=== PATIENT | female | born 1955 | race Caucasian/White ===

== ENCOUNTER → 2016-06-05 | Outpatient (CLI) | payer OTHER ==
[~2016-06-05] MED LIST: ASPI81TA28 PO; ATOR10TA88 PO; CALC12502 PO; CHOL1000 PO; IBUP-1050 PO; LISI10TA PO; MULT1TAB22 PO; POTA1TAB PO
[2016-06-05 13:13] LABS: BLOOD UREA NITROGEN 18 mg/dl (7-18); CALCIUM 9.3 mg/dl (8.5-10.1); CARBON DIOXIDE 22 mmol/L (21-32); CHLORIDE 108 mmol/L (98-107); CREATININE 0.94 mg/dl (0.60-1.20); GLUCOSE 107 mg/dl (70-99); POTASSIUM 4.1 mmol/L (3.5-5.1); SODIUM 140 mmol/L (136-145)
[2016-06-05 13:24] LABS: CHOLESTEROL 160 mg/dl (0-200); CHOLESTEROL/HDL RATIO 3.6; HDL CHOLESTEROL 44 mg/dl; LDL CHOLESTEROL CALCULATED 87 mg/dl; THYROID STIMULATING HORMONE 0.006 uIu/ml (0.300-4.500); TRIGLYCERIDES 144 mg/dl (0-150); VERY LOW DENSITY LIPOPROT CALC 29 mg/dl
== END | disposition home or self-care (01) ==
LOC: C.LABPVFM 07:40
PROVIDERS: ATTEND Nurse Practitioner
DX: R53.83 Other fatigue (principal); E78.5 Hyperlipidemia, unspecified; I10 Essential (primary) hypertension

== ENCOUNTER → 2016-06-08 | Outpatient (CLI) | payer OTHER ==
[2016-06-10 08:19] LABS: MICROSOMAL AB <1 IU/ML (<9); THYROGLOBULIN 174.6 NG/ML (2.8-40.9)
== END | disposition home or self-care (01) ==
LOC: C.LABPVFM 07:44
PROVIDERS: ATTEND Nurse Practitioner
DX: E05.90 Thyrotoxicosis, unspecified without thyrotoxic crisis or storm (principal)

== ENCOUNTER → 2016-06-16 | Outpatient (CLI) | payer OTHER ==
[~2016-06-16] MED LIST changes: +BMX1 PO; +ETOD200C2 PO; +METH-848 PO; +NRN100 PO; +OMEP20CA9 PO
[2016-06-19 14:27] LABS: TSI 31 % baseline (<140)
== END | disposition home or self-care (01) ==
LOC: C.LABPVFM 07:45
PROVIDERS: ATTEND Nurse Practitioner
DX: E05.90 Thyrotoxicosis, unspecified without thyrotoxic crisis or storm (principal)

== ENCOUNTER → 2016-06-23 | Outpatient (CLI) | payer OTHER | END | disposition home or self-care (01) | LOC: C.PAPS 17:10 | PROVIDERS: ATTEND Obstetrics & Gynecology | DX: Z01.419 Encounter for gynecological examination (general) (routine) without abnormal findings (principal) ==

== ENCOUNTER → 2016-08-31 | Outpatient (CLI) | payer OTHER ==
[~2016-08-31] MED LIST changes: +ATOR10TA82 PO; -ATOR10TA88 PO
[2016-08-31 13:46] LABS: THYROID STIMULATING HORMONE < 0.005 uIu/ml (0.300-4.500)
== END | disposition home or self-care (01) ==
LOC: C.LAB1850 11:42
PROVIDERS: ATTEND Internal Medicine Endocrinology, Diabetes & Metabolism
DX: E05.90 Thyrotoxicosis, unspecified without thyrotoxic crisis or storm (principal); E55.9 Vitamin D deficiency, unspecified

== ENCOUNTER → 2016-09-22 | Outpatient (CLI) | payer OTHER | END | disposition home or self-care (01) | LOC: C.MAMM 08:15 | PROVIDERS: ATTEND Internal Medicine Endocrinology, Diabetes & Metabolism | DX: R53.83 Other fatigue (principal); E05.90 Thyrotoxicosis, unspecified without thyrotoxic crisis or storm; E04.1 Nontoxic single thyroid nodule ==

== ENCOUNTER → 2016-09-22 | Outpatient (CLI) | payer OTHER ==
--- NOTE | 2016-09-22 12:05 | DIAGNOSTIC IMAGING REPORT ---
ULTRASOUND OF THE THYROID GLAND CLINICAL HISTORY: Fatigue. Hyperthyroidism. COMPARISON STUDY: Nuclear thyroid uptake and scan dated 07/02/2016. TECHNIQUE: Real-time, grayscale, and color flow sonography of the thyroid gland is performed utilizing a high-frequency linear transducer. Images are reviewed in the transverse and longitudinal planes. FINDINGS: Right lobe: The right lobe of the thyroid gland is mildly enlarged and heterogeneous in echotexture, measuring 5.6 x 1.8 x 2.1 cm. There is a complex solid and cystic nodule in the lower pole measuring 1.8 x 1.0 x 1.1 cm. This contains foci of macroscopic colloid. A similar appearing nodule in the midpole measures 1.3 x 1.0 x 1.3 cm and a larger similar-appearing nodule in the mid to lower pole measures 2.3 x 1.4 x 1.3 cm.. A colloid cyst in the midpole measures 7 mm. Left lobe: The left lobe of the thyroid gland is enlarged and heterogeneous in echotexture, measuring 6.7 x 3.1 x 3.3 cm. A dominant complex nodule largely replaced the left lobe and measures 4.2 x 2.7 x 3.2 cm. This contains large shadowing calcifications and small foci of macroscopic colloid. Isthmus: The thyroid isthmus is thickened and heterogeneous, measuring 1.1 cm in AP diameter. IMPRESSION: 1. Enlarged and heterogeneous thyroid gland. 2. There are large bilateral thyroid nodules containing foci of macroscopic colloid. The largest nodule is present in the left lobe and measures 4.2 cm. Follow-up with fine-needle aspiration of the largest nodule in the left lobe is recommended for further assessment based on size criteria. 3. Follow-up of the remaining nodules is recommended with repeat ultrasound in 6 months time. Electronically signed by: Reid Camarena M.D. 09/22/2016 12:03 PM Dictated Date/Time: 09/22/2016 12:00 PM
== END | disposition home or self-care (01) ==
LOC: C.ULTR 10:22
PROVIDERS: ATTEND Internal Medicine Endocrinology, Diabetes & Metabolism
DX: E05.90 Thyrotoxicosis, unspecified without thyrotoxic crisis or storm (principal); R53.83 Other fatigue; E04.1 Nontoxic single thyroid nodule

== ENCOUNTER → 2016-09-22 | Outpatient (CLI) | payer OTHER ==
[2016-09-22 09:49] LABS: BASO % 0.2 %; BASO ABS # 0.01 K/uL (0-0.2); COMPLETE YES; EOS % 2.7 %; HEMATOCRIT 41.4 % (37-47); IG% 0.2 %; LYMPH % 36.9 %; LYMPH ABS # 2.17 K/uL (1.2-3.4); MEAN CELL VOLUME 87.3 fL (80-100); MEAN CORPUSCULAR HEMOGLOBIN 28.7 pg (25-34); MEAN CORPUSCULAR HGB CONC 32.9 g/dl (32-36); MEAN PLATELET VOLUME 11.4 fL (7.4-10.4); PLATELET COUNT 203 K/uL (130-400); RED BLOOD COUNT 4.74 M/uL (4.2-5.4); WHITE BLOOD COUNT 5.88 K/uL (4.8-10.8)
[2016-09-22 10:32] LABS: ALT/SGPT 33 U/L (12-78); AST/SGOT 15 U/L (15-37); BLOOD UREA NITROGEN 17 mg/dl (7-18); CALCIUM 9.9 mg/dl (8.5-10.1); CARBON DIOXIDE 27 mmol/L (21-32); CHLORIDE 108 mmol/L (98-107); CREATININE 0.93 mg/dl (0.60-1.20); GLUCOSE 89 mg/dl (70-99); SODIUM 142 mmol/L (136-145)
[2016-09-22 10:35] LABS: ALB/GLOB RATIO 1.1 (0.9-2); ALKALINE PHOSPHATASE 121 U/L (45-117)
== END | disposition home or self-care (01) ==
LOC: C.LAB1850 08:50
PROVIDERS: ATTEND Internal Medicine Endocrinology, Diabetes & Metabolism
DX: E78.5 Hyperlipidemia, unspecified (principal); E05.90 Thyrotoxicosis, unspecified without thyrotoxic crisis or storm; E04.1 Nontoxic single thyroid nodule

== ENCOUNTER → 2016-09-30 | Outpatient (CLI) | payer OTHER | END | disposition home or self-care (01) | LOC: C.LAB1850 11:40 | PROVIDERS: ATTEND Internal Medicine Endocrinology, Diabetes & Metabolism | DX: E05.90 Thyrotoxicosis, unspecified without thyrotoxic crisis or storm (principal) ==

== ENCOUNTER → 2016-10-19 | Outpatient (CLI) | payer OTHER | END | disposition home or self-care (01) | LOC: C.LABPVFM 11:23 | PROVIDERS: ATTEND Neuromusculoskeletal Medicine & OMM | DX: L02.415 Cutaneous abscess of right lower limb (principal) ==

== ENCOUNTER → 2016-11-09 | Outpatient (CLI) | payer OTHER ==
[~2016-11-09] MED LIST changes: -ATOR10TA82 PO; +ATOR10TA88 PO
--- NOTE | 2016-11-09 16:45 | DIAGNOSTIC IMAGING REPORT ---
ULTRASOUND RIGHT LOWER EXTREMITY VENOUS CLINICAL HISTORY: Right leg pain and swelling. COMPARISON STUDY: Right lower extremity venous ultrasound dated 10/16/2009. TECHNIQUE: Real-time, grayscale, and color Doppler sonography of the deep veins of the right lower extremity was performed from the inguinal crease to the calf. Compression and augmentation were utilized. FINDINGS: There is no sonographic evidence of deep venous thrombosis identified in the right lower extremity. The common femoral, superficial femoral, and popliteal veins are patent and normally compressible. There is nearly occlusive superficial venous thrombus identified within the right greater saphenous vein. The visualized calf veins are patent. IMPRESSION: 1. There is no sonographic evidence of deep venous thrombosis identified in the right lower extremity. 2. There is nearly occlusive superficial venous thrombus seen throughout the greater saphenous vein. Electronically signed by: Reid Camarena M.D. 11/09/2016 4:43 PM Dictated Date/Time: 11/09/2016 4:41 PM
== END | disposition home or self-care (01) ==
LOC: C.ULTR 16:13
PROVIDERS: ATTEND Family Medicine
DX: M79.605 Pain in left leg (principal); R60.0 Localized edema

== ENCOUNTER → 2016-11-19 | Outpatient (CLI) | payer OTHER ==
[~2016-11-19] MED LIST changes: -BMX1 PO; -ETOD200C2 PO; -METH-848 PO; -NRN100 PO; -OMEP20CA9 PO
== END | disposition home or self-care (01) ==
LOC: C.LABPVFM 07:30
PROVIDERS: ATTEND Internal Medicine Endocrinology, Diabetes & Metabolism
DX: E05.90 Thyrotoxicosis, unspecified without thyrotoxic crisis or storm (principal)

== ENCOUNTER → 2016-11-20 | Outpatient (CLI) | payer OTHER ==
[~2016-11-20] MED LIST changes: +BMX1 PO; +ETOD200C2 PO; +METH-848 PO; +NRN100 PO; +OMEP20CA9 PO
[2016-11-20 18:40] LABS: LYME DISEASE AB IGG NEG (NEG); LYME DISEASE AB IGM NEG (NEG)
== END | disposition home or self-care (01) ==
LOC: C.LABPVFM 12:02
PROVIDERS: ATTEND Nurse Practitioner
DX: R53.83 Other fatigue (principal); R60.0 Localized edema; L03.115 Cellulitis of right lower limb

== ENCOUNTER → 2016-11-24 | Outpatient (CLI) | payer OTHER ==
--- NOTE | 2016-11-24 15:58 | MAMMOGRAPHY REPORT ---
BILATERAL DIGITAL SCREENING MAMMOGRAM WITH CAD: 11/24/2016 CLINICAL HISTORY: Routine screening. Patient has no complaints. TECHNIQUE: Bilateral CC and MLO views were obtained. Current study was also evaluated with a Comput er Aided Detection (CAD) system. COMPARISON: Comparison is made to exams dated: 10/24/2015 mammogram, 10/22/2014 mammogram, 10/16/2013 ma mmogram, 10/13/2012 mammogram, 10/10/2010 mammogram, and 10/09/2009 mammogram - [facility] BREAST COMPOSITION: There are scattered areas of fibroglandular density in both breasts. FINDINGS: There are scattered benign rim calcifications in the breasts. No suspicious mass, architec tural distortion or cluster of suspicious microcalcifications is seen. IMPRESSION: ACR BI-RADS CATEGORY 1: NEGATIVE There is no mammographic evidence of malignancy. A 1 year screening mammogram is recommended. The pa tient will receive written notification of the results. Approximately 10% of breast cancers are not detected with mammography. A negative mammographic report should not delay biopsy if a clinically suggestive mass is present. Monika Wang M.D. ay/:11/24/2016 15:45:23 Interior Block Wirer: Gloria Crews, [facility] letter sent: Normal 1/2 BI-RADS Code: ACR BI-RADS Category 1: Negative
== END | disposition home or self-care (01) ==
LOC: C.MAMM 15:17
PROVIDERS: ATTEND Nurse Practitioner
DX: Z12.31 Encounter for screening mammogram for malignant neoplasm of breast (principal)

== ENCOUNTER → 2016-11-25 | Outpatient (CLI) | payer OTHER ==
--- NOTE | 2016-11-25 10:52 | DIAGNOSTIC IMAGING REPORT ---
BILATERAL LOWER EXTREMITY ARTERIAL DOPPLER ULTRASOUND CLINICAL HISTORY: Bilateral lower extremity edema. COMPARISON STUDY: Right lower extremity venous Doppler November 09, 2016. FINDINGS: Note was again made of extensive superficial thrombus throughout the right greater saphenous vein that extends to within 1.1 cm of the right common femoral vein. This thrombus was shown on exam of November 09, 2016. Ankle to brachial indices were not obtained in this patient due to thrombus. There was monophasic flow throughout each lower extremity. This raises the possibility of inflow disease. No elevated velocities were identified within either lower extremity. There was mild atherosclerotic plaque. Calf vessels were suboptimally assessed due to lower extremity edema. IMPRESSION: 1. Mild atherosclerotic plaque within each lower extremity with no elevated velocities to suggest a hemodynamically significant stenosis. Monophasic flow throughout both lower extremities which raises the possibility of inflow disease. 2. Redemonstration of extensive superficial thrombus within the right greater saphenous vein, as shown on ultrasound of November 09, 2016. This thrombus extends to within 1.1 cm of the common femoral vein. Comparison by sonography is difficult but the amount of thrombus within the right greater saphenous vein has likely increased. Electronically signed by: Tung Cleveland M.D. 11/25/2016 10:51 AM Dictated Date/Time: 11/25/2016 10:45 AM
== END | disposition home or self-care (01) ==
LOC: C.ULTR 09:42
PROVIDERS: ATTEND Nurse Practitioner
DX: R60.0 Localized edema (principal); I82.811 Embolism and thrombosis of superficial veins of right lower extremity

== ENCOUNTER → 2016-12-01 | Outpatient (CLI) | payer OTHER ==
--- NOTE | 2016-12-01 10:15 | DIAGNOSTIC IMAGING REPORT ---
VENOUS DOPP LOWER EXT UNILAT CLINICAL HISTORY: R60.0 Edema of lower extremity r/o [id number] pain. Edema. TECHNIQUE: Venous Doppler COMPARISON STUDY: 11/09/2016 FINDINGS: Normal study. Superficial thrombophlebitis previous described has resolved IMPRESSION: Normal study The above report was generated using voice recognition software. It may contain grammatical, syntax or spelling errors. Electronically signed by: Jordan Pettit M.D. 12/01/2016 10:13 AM Dictated Date/Time: 12/01/2016 10:12 AM
== END | disposition home or self-care (01) ==
LOC: C.ULTR 09:45
PROVIDERS: ATTEND Nurse Practitioner
DX: R60.0 Localized edema (principal)

== ENCOUNTER → 2016-12-21 | Outpatient (CLI) | payer OTHER ==
[2016-12-21 13:01] LABS: ESTIMATED AVERAGE GLUCOSE 120 mg/dl; HA1C FLAG Normal (Normal)
[2016-12-21 13:24] LABS: BLOOD UREA NITROGEN 24 mg/dl (7-18); BUN/CREATININE RATIO 27.9 (10-20); CALCIUM 9.4 mg/dl (8.5-10.1); CARBON DIOXIDE 25 mmol/L (21-32); CHLORIDE 107 mmol/L (98-107); CHOLESTEROL 172 mg/dl (0-200); CREATININE 0.87 mg/dl (0.60-1.20); GLUCOSE 81 mg/dl (70-99); POTASSIUM 3.8 mmol/L (3.5-5.1); SODIUM 139 mmol/L (136-145); TRIGLYCERIDES 82 mg/dl (0-150); VERY LOW DENSITY LIPOPROT CALC 16 mg/dl
[2016-12-21 13:27] LABS: CHOLESTEROL/HDL RATIO 2.8; HDL CHOLESTEROL 61 mg/dl; LDL CHOLESTEROL CALCULATED 95 mg/dl
== END | disposition home or self-care (01) ==
LOC: C.LABPVFM 07:29
PROVIDERS: ATTEND Internal Medicine Endocrinology, Diabetes & Metabolism
DX: R73.01 Impaired fasting glucose (principal); I10 Essential (primary) hypertension; E78.5 Hyperlipidemia, unspecified; E05.90 Thyrotoxicosis, unspecified without thyrotoxic crisis or storm

== ENCOUNTER → 2016-12-22 | Outpatient (CLI) | payer OTHER | END | disposition home or self-care (01) | LOC: C.LABPVFM 10:12 | PROVIDERS: ATTEND Internal Medicine Endocrinology, Diabetes & Metabolism | DX: E05.90 Thyrotoxicosis, unspecified without thyrotoxic crisis or storm (principal) ==

== ENCOUNTER → 2017-01-09 | Outpatient (CLI) | payer OTHER ==
[2017-01-09 13:11] LABS: URINE APPEARANCE CLEAR (CLEAR); URINE BILIRUBIN NEG (NEG); URINE COLOR YELLOW; URINE EPITHELIAL CELL AUTO 20-30 /lpf (0-5); URINE NITRITE NEG (NEG); UROBILINOGEN NEG (NEG); ZZUR CULT IF INDIC CLEAN CATCH NO
[2017-01-09 13:28] LABS: MANUAL MICROSCOPIC REQUIRED? NO; REVIEW REQ? YES
== END | disposition home or self-care (01) ==
LOC: C.LABPVFM 09:45
PROVIDERS: ATTEND Neuromusculoskeletal Medicine & OMM
DX: R31.9 Hematuria, unspecified (principal)

== ENCOUNTER → 2017-01-14 | Outpatient (CLI) | payer OTHER ==
--- NOTE | 2017-01-14 07:01 | DIAGNOSTIC IMAGING REPORT ---
KIDNEY (ABDOMEN) WITHOUT CLINICAL HISTORY: R31.0 Gross [id number] Right flank TECHNIQUE: Transaxial acquisition of multi axial reformatted images. COMPARISON STUDY: None FINDINGS: Lung bases are clear. Configuration of liver spleen and pancreas appear unremarkable. Probable gallstone the region of the gallbladder fundus. Kidneys are considered negative for calcification or hydronephrosis. Perinephric spaces are unremarkable. Considerable degenerative change of the low thoracic and upper lumbar spine. IMPRESSION: Negative unenhanced CT scan of the kidneys. Gallstone. The above report was generated using voice recognition software. It may contain grammatical, syntax or spelling errors. Electronically signed by: Jordan Pettit M.D. 01/14/2017 6:59 AM Dictated Date/Time: 01/14/2017 6:56 AM
== END | disposition home or self-care (01) ==
LOC: C.CTS 06:36
PROVIDERS: ATTEND Neuromusculoskeletal Medicine & OMM
DX: R31.0 Gross hematuria (principal); R10.9 Unspecified abdominal pain

== ENCOUNTER → 2017-01-21 | Outpatient (CLI) | payer OTHER ==
--- NOTE | 2017-01-21 13:34 | Discharge Instructions ---
Discharge Instructions Procedure Procedure Date: Jan 21, 2017. Reason for visit: Multinodular Goiter. Discharge Discharge Date: Jan 21, 2017. Discharge Diagnosis: s/p bilateral thyroid nodule FNA Instructions Activity Recommendations: No limitations Return to School/Work: no limitations Recommended Home Diet: No Limitations Provider Instructions: ACTIVITY RECOMMENDATIONS: * Rest today. * Resume regular activity in one day. MEDICATIONS: * May take Tylenol or Ibuprofen as needed for pain. DIET: * Resume previous diet. SPECIAL CARE INSTRUCTIONS: Call your doctor if: * Temperature above 101 degrees F. * Pain not relieved by pain medicine ordered. * Increased drainage or redness from incision. * Notify your doctor with any questions or concerns. Call your doctor or go to the nearest Emergency Department if you experience: * Increased chest pain or shortness of breath. FOLLOW UP VISIT: Follow-up with Referring Physician as scheduled. Allergies Coded Allergies: No Known Allergies (Unverified , 07/23/15) Mireya Huerta Recommendations: Call your doctor if: * Temperature above 101 degrees * Pain not relieved by pain medicine ordered * There is increased drainage or redness from any incision * You have any unanswered questions or concerns. Your Doctors Instructions noted above were prepared by provider Tung Cleveland. Patient Signature Section: Patient Instructions Signature Page Jamee Rosas Patient (or Guardian) Signature/Date: I have read and understand the instructions given to me by my caregivers. Caregiver/RN/Doctor Signature/Date: The above-named patient and/or guardian has received patient instructions on this date. + Original Patient Signature Page (only) stays with chart. Please make copy for patient.
--- NOTE | 2017-01-21 14:05 | DIAGNOSTIC IMAGING REPORT ---
ULTRASOUND GUIDED FINE NEEDLE ASPIRATION OF BILATERAL THYROID NODULES CLINICAL HISTORY: Multinodular goiter. COMPARISON STUDY: Thyroid ultrasound September 22, 2016. PROCEDURE: Sonography of the thyroid gland again demonstrated multiple thyroid nodules, including a dominant 4.2 cm left lobe nodule and a 2 cm right lobe nodule shown on ultrasound of September 22, 2016. These 2 nodules were targeted for fine needle aspiration. The procedure, risks and benefits were discussed with the patient and informed written consent was obtained. The procedure was performed by Dr. Cleveland following a timeout. Skin was prepped and draped in sterile fashion and local anesthesia was achieved with 1% lidocaine. Under direct ultrasound guidance, 1 25-gauge fine needle aspiration of the left lobe nodule was performed as well as 2 25-gauge fine needle aspirations of the right lobe nodule. The samples were deemed preliminarily adequate by pathology. The patient tolerated the procedure well and no immediate complications were evident. IMPRESSION: Ultrasound guided fine needle aspiration of bilateral thyroid nodules, as described above. Electronically signed by: Tung Cleveland M.D. 01/21/2017 2:04 PM Dictated Date/Time: 01/21/2017 2:02 PM
== END | disposition home or self-care (01) ==
LOC: C.ULTR 12:35
PROVIDERS: ATTEND Internal Medicine Endocrinology, Diabetes & Metabolism
DX: E04.2 Nontoxic multinodular goiter (principal)

== ENCOUNTER → 2017-02-01 | Outpatient (CLI) | payer OTHER ==
[2017-02-01 12:42] LABS: HEMATOCRIT 38.7 % (37-47); MEAN CELL VOLUME 88.4 fL (80-100); MEAN CORPUSCULAR HEMOGLOBIN 28.5 pg (25-34); MEAN CORPUSCULAR HGB CONC 32.3 g/dl (32-36); MEAN PLATELET VOLUME 11.2 fL (7.4-10.4); PLATELET COUNT 204 K/uL (130-400); RED BLOOD COUNT 4.38 M/uL (4.2-5.4); WHITE BLOOD COUNT 5.97 K/uL (4.8-10.8)
[2017-02-01 12:55] LABS: PARTIAL THROMBOPLASTIN RATIO 1.2; PROTHROMBIN TIME (PATIENT) 10.5 SECONDS (9.0-12.0)
[2017-02-01 13:17] LABS: BLOOD UREA NITROGEN 19 mg/dl (7-18); BUN/CREATININE RATIO 19.7 (10-20); CALCIUM 9.2 mg/dl (8.5-10.1); CARBON DIOXIDE 22 mmol/L (21-32); CHLORIDE 109 mmol/L (98-107); CREATININE 0.96 mg/dl (0.60-1.20); GLUCOSE 111 mg/dl (70-99); SODIUM 141 mmol/L (136-145)
== END | disposition home or self-care (01) ==
LOC: C.LABPVFM 07:27
PROVIDERS: ATTEND Internal Medicine Interventional Cardiology
DX: Z01.818 Encounter for other preprocedural examination (principal)

== ENCOUNTER 2017-02-10 09:18 | Day surgery (SDC) | payer OTHER ==
[~2017-02-10] VITALS: Ht 162.6 cm; Wt 109.0 kg
[~2017-02-10 09:18] MED LIST changes: -BMX1 PO; -ETOD200C2 PO; -METH-848 PO; -NRN100 PO; -OMEP20CA9 PO; +SODIUM CHLORIDE 0.9% 1000ML IV SCH
[2017-02-10] MEDS ORDERED: NRN100 PO (10:31)
[2017-02-10] MEDS ORDERED: ETOD200C2 PO (10:31)
[2017-02-10] MEDS ORDERED: BMX1 PO (10:31)
[2017-02-10] MEDS ORDERED: METH-848 PO (10:31)
[2017-02-10] MEDS ORDERED: OMEP20CA9 PO (10:31)
[2017-02-10 10:32] VITALS: BP 112/69; PULSE 72; TEMP 36.6; O2SAT 97; Ht 162.6 cm; Wt 109.0 kg
--- NOTE | 2017-02-10 10:57 | Procedure Note ---
Pre-Mod Sedation Assessment General Date of Moderate Sedation: Feb 10, 2017. Vital Signs: Vital Signs Past 12 Hours Date Time Temp Pulse Resp B/P (MAP) Pulse Ox O2 Delivery O2 Flow Rate FiO2 02/10/17 10:32 36.6 72 18 112/69 (83) 97 Room Air Review Cardiovascular: regular rate, rhythm, no edema Abdomen: normal bowel sounds, non tender Lungs: chest non-tender, lungs clear Pre-Sedation Airway Assessment Oral Cavity: WNL Able to Visualize Vocal Cords: No Short Thick Neck: No Hx of Sleep Apnea: No Smoking Status: Never Smoker Mallampati Classification: Class III ASA Classification: Class II Procedure Planning Contraindications-for Mod Sed: None Yes Notes The planned sedation has been discussed with the patient and consent obtained. I have identified the patient, determined the appropriateness of sedation and have assessed the patient immediately prior to the procedure. All medicine(s) and interventions are by my order.
--- NOTE | 2017-02-10 11:01 | History and Physical ---
History & Physical Date Feb 10, 2017. Chief Complaint Venous insufficiency/Lower extremity pain History of Present Illness Mrs. Rosas is a 61 year-old woman with a history of hypertension, hyperlipidemia , gerd, obesity and recent superficial venous thrombosis here for right GSV RFA. Patient was initially seen in November. At that time she had treated for the month prior for possible cellulitis of her right lower extremity and underwent incision of a questionable abscess on her right thigh. Following procedure and antibiotics had progression of right leg swelling, redness and pain. Underwent a lower extremity duplex which showed no DVT but extensive right GSV thrombus approaching the SFJ. Had been treated with NSAIDs and OTC compression stockings with minimal symptom relief. Patient denied any prior history of DVT or blood clots. She does endorse longstanding LE swelling and history of venous varicosities. No bleeding history. Denies lower extremity pain consistent with claudication. She was treated with Xarelto for 6 weeks due to significant GSV thrombus encroaching on the deep system. She has tolerated anticoagulation without any bleeding. Swelling, discomfort, redness in her right lower extremity resolved which she attributes to a course of steroids. Still endorses some discomfort in her legs which is seems to be more chronic, as well as baseline redness and mild edema. Past Medical/Surgical History Surgical Problems: (1) History of carpal tunnel surgery Additional History Hepatic Disease: No Endocrine Disorder: No Kidney Disease: No Hypertension: Yes Heart Disease: No Bleeding Tendencies: No Infectious Diseases: No Allergies Coded Allergies: Cephalexin (Unverified Allergy, Unknown, UNKNOWN, 02/10/17) Home Medications Scheduled Aspirin (Aspirin Ec), 81 MG PO DAILY Atorvastatin (Lipitor), 10 MG PO DAILY Bumetanide (Bumetanide), 1 MG PO DAILY Cholecalciferol (Vitamin D3), 1 TAB PO DAILY Etodolac (Etodolac), 200 MG PO DAILY Gabapentin (Gabapentin), 100 MG PO DIRECTED Ibuprofen (Advil), 400 MG PO DAILY Lisinopril (Prinivil), 10 MG PO DAILY Methimazole (Methimazole), 5 MG PO DIRECTED Multiple Vitamins W/ Minerals (One Daily For Women), 1 TAB PO DAILY Omeprazole (Prilosec), 20 MG PO DAILY Potassium Gluconate (Potassium Gluconate), 595 MG PO DAILY Physical Examination Skin: warm/dry Eyes: normal inspection ENT: normal ENT inspection Neck: supple Respiratory/Chest: lungs clear Cardiovascular: regular rate, rhythm Abdomen / GI: normal bowel sounds Extremities: normal inspection Neurologic/Psych: alert, oriented x 3 Diagnosis Venous insufficiency ASA Classification: ASA Class II Plan of Treatment Right GSV RF ablation
[2017-02-10] MEDS ORDERED: LIDOCAINE HCL 1% 20 ML VIAL ONE (11:02)
[2017-02-10] MEDS ORDERED: LIDOCAINE/EPINEPHRINE 1% INJ 50 ML VIAL ONE (11:02)
[2017-02-10 11:08] VITALS: BP 112/69; PULSE 72; TEMP 36.6; O2SAT 97
[2017-02-10] MEDS ORDERED: LIDOCAINE HCL 1% 20 ML VIAL INJ ONE (11:39)
[2017-02-10] MEDS ORDERED: FENTANYL CITRATE INJ 50 MCG/1 ML 2 ML VIAL IV ONE (11:44)
[2017-02-10] MEDS ORDERED: ORM MISCELLANEOUS MED XX ONE (12:08)
--- NOTE | 2017-02-10 12:09 | Procedure Note ---
Post-Mod Sedation Assessment General Date of Moderate Sedation Feb 10, 2017. Vital Signs: Vital Signs Past 12 Hours Date Time Temp Pulse Resp B/P (MAP) Pulse Ox O2 Delivery O2 Flow Rate FiO2 02/10/17 10:32 36.6 72 18 112/69 (83) 97 Room Air Review - Discharge Criteria Vital Signs Stable: Yes Alert/Oriented/Conversant: Yes Returned to Baseline Mental St: Yes Nausea Absent/Minimal: Yes Pain/Discomfort/Absent/Minimal: Yes Normal/Baseline Respirations: Yes Active Bleeding?: N/A Pt Received D/C Instructions: Yes Prescriptions Given: None Specific Proced. D/C Criteria Distal Pulses Present (Cardiac: N/A Groin site assessed-Card Cath: N/A Voided Prior To Discharge: N/A Discharged Patients Adult Escort/Transportation: Yes
--- NOTE | 2017-02-10 12:10 | [facility] Operative Report ---
Operative Report Operative Date Feb 10, 2017. Pre-Operative Diagnosis Venous Insufficiency Post-Operative Diagnosis Same Procedure(s) Performed Right Greater Saphenous Vein Radiofrequency Ablation Surgeon Magan Director Of Individual Giving Surgeon(s) None Estimated Blood Loss 5 Findings Dilated Right GSV with varicosities Specimens None Drains None Anesthesia Moderate (Fentanyl) Complication(s) None Disposition Recovery Room / PACU Indications Venous insufficiency/Lower extremity pain Description of Procedure US guided access Right GSV below the knee (second stick, first was lower). Catheter inserted, 2.5cm from SFJ. Tumescent injected. US confirmed not in deep system. 3:40, 11 cycles of RFA right GSV. No complications. Patient tolerated well. US confirmed no DVT post procedure. I attest to the content of the Intraoperative Record and any orders documented therein. Any exceptions are noted below.
[2017-02-10] MEDS ORDERED: FENTANYL CITRATE INJ 50 MCG/1 ML 2 ML VIAL ONE (12:12)
--- NOTE | 2017-02-10 12:13 | Discharge Instructions ---
Discharge Instructions Procedure Procedure Date: Feb 10, 2017. Reason for Visit: Venous Insufficiency. Discharge Discharge Date: Feb 10, 2017. Discharge Diagnosis: Venous insufficiency Last Recorded Wt (Kilograms): 109 Anesthesia Post Anesthesia Instructions: If you have had General Anesthesia or IV Sedation: * Do not drive today. * Resume driving when surgeon permits. * Do not make important decisions or sign legal documents today. * Call surgeon for: 1. Temperature elevations greater than 101 degrees F. 2. Uncontrollable pain. 3. Excessive bleeding. 4. Persistent nausea and vomiting. 5. Medication intolerance (nausea, vomiting or rash). * For nausea and vomiting use only clear liquids such as: tea, soda, bouillon until nausea subsides, then gradually increase diet as tolerated. * If you have any concerns or questions, call your surgeon's office. If physician is unavailable and it is an emergency, call 911 or go to the nearest emergency room. Instructions Activity Recommendations: limitations as noted below Recommended Home Diet: resume previous diet Allergies: Coded Allergies: Cephalexin (Unverified Allergy, Unknown, UNKNOWN, 02/10/17) Follow Up Additional Instructions: Follow instructions as outlined in paperwork form Dr. Carrero' office. Follow up Ultrasound as scheduled. MIKAELA wrap until ultrasound Post ultrasound wear your compression stockings indefinitely. Any severe pain, present to the emergency room concerned about DVT. Follow-up with: As scheduled Mireya Huerta Recommendations: Call your doctor if: * Temperature above 101 degrees * Pain not relieved by pain medicine ordered * There is increased drainage or redness from any incision * You have any unanswered questions or concerns. Your Doctors Instructions noted above were prepared by provider Trevon Carrero. Patient Signature Section: Patient Instructions Signature Page Jamee Rosas Patient (or Guardian) Signature/Date: I have read and understand the instructions given to me by my caregivers. Caregiver/RN/Doctor Signature/Date: The above-named patient and/or guardian has received patient instructions on this date. + Original Patient Signature Page (only) stays with chart. Please make copy for patient.
[2017-02-10 12:20] VITALS: BP 176/81; PULSE 66; TEMP 36.4; O2SAT 99
[2017-02-10 12:55] VITALS: BP 151/65; PULSE 68; O2SAT 99
[2017-02-10 13:11] VITALS: BP 137/67; PULSE 74; TEMP 36.4; O2SAT 100
== END 2017-02-10 13:13 | disposition home or self-care (01) ==
LOC: C.ACU 09:18
PROVIDERS: ATTEND Internal Medicine Interventional Cardiology
DX: I87.2 Venous insufficiency (chronic) (peripheral) (principal); I10 Essential (primary) hypertension; E78.5 Hyperlipidemia, unspecified; K21.9 Gastro-esophageal reflux disease without esophagitis; E66.9 Obesity, unspecified; Z98.890 Other specified postprocedural states; Z79.82 Long term (current) use of aspirin; Z79.899 Other long term (current) drug therapy

== ENCOUNTER → 2017-03-03 | Outpatient (CLI) | payer OTHER ==
[~2017-03-03] MED LIST changes: +ATOR10TA82 PO; -ATOR10TA88 PO; +BMX1 PO; -CALC12502 PO; +ETOD200C2 PO; +METH-848 PO; +NRN100 PO; +OMEP20CA9 PO; -SODIUM CHLORIDE 0.9% 1000ML IV SCH
[2017-03-03 14:24] LABS: THYROID STIMULATING HORMONE 2.09 uIu/ml (0.300-4.500)
== END | disposition home or self-care (01) ==
LOC: C.LABPVFM 07:26
PROVIDERS: ATTEND Internal Medicine Endocrinology, Diabetes & Metabolism
DX: N20.0 Calculus of kidney (principal); E05.90 Thyrotoxicosis, unspecified without thyrotoxic crisis or storm

== ENCOUNTER → 2017-04-06 | Outpatient (CLI) | payer OTHER ==
[2017-04-06 12:36] LABS: HEMATOCRIT 41.4 % (37-47); MEAN CELL VOLUME 91.2 fL (80-100); MEAN CORPUSCULAR HEMOGLOBIN 29.7 pg (25-34); MEAN CORPUSCULAR HGB CONC 32.6 g/dl (32-36); MEAN PLATELET VOLUME 11.5 fL (7.4-10.4); PLATELET COUNT 199 K/uL (130-400); RED BLOOD COUNT 4.54 M/uL (4.2-5.4)
[2017-04-06 12:48] LABS: PARTIAL THROMBOPLASTIN RATIO 1.1; PROTHROMBIN TIME (PATIENT) 10.6 SECONDS (9.0-12.0)
[2017-04-06 13:20] LABS: BLOOD UREA NITROGEN 15 mg/dl (7-18); BUN/CREATININE RATIO 13.8 (10-20); CALCIUM 9.2 mg/dl (8.5-10.1); CARBON DIOXIDE 27 mmol/L (21-32); CHLORIDE 105 mmol/L (98-107); CREATININE 1.12 mg/dl (0.60-1.20); GLUCOSE 93 mg/dl (70-99); POTASSIUM 4.1 mmol/L (3.5-5.1); SODIUM 136 mmol/L (136-145)
== END | disposition home or self-care (01) ==
LOC: C.LABPVFM 08:09
PROVIDERS: ATTEND Internal Medicine Interventional Cardiology
DX: Z01.818 Encounter for other preprocedural examination (principal)

== ENCOUNTER 2017-04-15 06:45 | Day surgery (SDC) | payer OTHER ==
[~2017-04-15] VITALS: Ht 162.6 cm; Wt 110.0 kg
[~2017-04-15 06:45] MED LIST changes: +SODIUM CHLORIDE 0.9% 1000ML 1,000 ML IV SCH
[2017-04-15 07:13] VITALS: BP 149/58; PULSE 70; TEMP 36; O2SAT 95; Ht 162.6 cm; Wt 110.0 kg
[2017-04-15] MEDS ORDERED: FENTANYL CITRATE INJ 50 MCG/1 ML 2 ML VIAL ONE (07:30)
[2017-04-15] MEDS ORDERED: LIDOCAINE HCL 1% 20 ML VIAL ONE (07:30)
[2017-04-15] MEDS ORDERED: SODIUM BICARB 8.4% INJ 50 MEQ/50 ML SYR IV ONE (07:30)
[2017-04-15] MEDS ORDERED: LIDOCAINE/EPINEPHRINE 1% INJ 50 ML VIAL ONE (07:30)
[2017-04-15] MEDS ORDERED: MIDAZOLAM HCL 1 MG/ML 2ML VIAL ONE (07:31)
[2017-04-15 07:52] VITALS: BP 149/58; PULSE 70; TEMP 36; O2SAT 95
--- NOTE | 2017-04-15 08:18 | History & Physical Bridge Note ---
H&P Re-Evaluation Bridge Note: I have examined the patient, reviewed the History & Physical and in the interval since the performance of the History & Physical I have noted the following changes of clinical significance: No changes noted
--- NOTE | 2017-04-15 08:19 | Procedure Note ---
Pre-Mod Sedation Assessment General Date of Moderate Sedation: Apr 15, 2017. Vital Signs: Vital Signs Past 12 Hours Date Time Temp Pulse Resp B/P (MAP) Pulse Ox O2 Delivery O2 Flow Rate FiO2 04/15/17 07:52 36.0 70 18 149/58 95 Room Air 04/15/17 07:13 36 70 18 149/58 (88) 95 Room Air Review Cardiovascular: regular rate, rhythm, no edema Abdomen: normal bowel sounds, non tender Lungs: chest non-tender, lungs clear Airway Class: III Pre-Sedation Airway Assessment Oral Cavity: WNL Short Thick Neck: No Hx of Sleep Apnea: No Smoking Status: Never Smoker Mallampati Classification: Class III ASA Classification: Class II Procedure Planning Contraindications-for Mod Sed: None Yes Notes The planned sedation has been discussed with the patient and consent obtained. I have identified the patient, determined the appropriateness of sedation and have assessed the patient immediately prior to the procedure. All medicine(s) and interventions are by my order.
[2017-04-15] MEDS ORDERED: LIDOCAINE HCL 1% 20 ML VIAL INJ ONE (09:02)
[2017-04-15] MEDS ORDERED: ORM MISCELLANEOUS MED XX ONE (09:17)
--- NOTE | 2017-04-15 09:27 | Procedure Note ---
Post-Mod Sedation Assessment General Date of Moderate Sedation Apr 15, 2017. Vital Signs: Vital Signs Past 12 Hours Date Time Temp Pulse Resp B/P (MAP) Pulse Ox O2 Delivery O2 Flow Rate FiO2 04/15/17 07:52 36.0 70 18 149/58 95 Room Air 04/15/17 07:13 36 70 18 149/58 (88) 95 Room Air Review - Discharge Criteria Vital Signs Stable: Yes Alert/Oriented/Conversant: Yes Returned to Baseline Mental St: Yes Nausea Absent/Minimal: Yes Pain/Discomfort/Absent/Minimal: Yes Normal/Baseline Respirations: Yes Active Bleeding?: No Pt Received D/C Instructions: N/A Prescriptions Given: None Specific Proced. D/C Criteria Distal Pulses Present (Cardiac: N/A Groin site assessed-Card Cath: N/A Voided Prior To Discharge: N/A Discharged Patients Adult Escort/Transportation: Yes
--- NOTE | 2017-04-15 09:28 | [facility] Operative Report ---
Operative Report Operative Date Apr 15, 2017. Pre-Operative Diagnosis chronic venous insufficiency Post-Operative Diagnosis same Procedure(s) Performed Left Lower Extremity Greater Saphenous Vein Radiofrequency Ablation Surgeon Dr. Michael Carrero Orientation & Mobility Specialist Surgeon(s) none Estimated Blood Loss 5 ml Findings Dilated Left GSV Fluids 650 Tumescent Specimens none Drains None Anesthesia Local Complication(s) None Disposition Recovery Room / PACU Indications Symptomatic chronic venous insufficiency Description of Procedure US guided access Left GSV below the knee. Catheter inserted, 3cm from SFJ. Tumescent injected. US confirmed not in deep system. 4:40, 14 cycles of RFA Left GSV. No complications. Patient tolerated well. US confirmed no DVT post procedure. I attest to the content of the Intraoperative Record and any orders documented therein. Any exceptions are noted below.
--- NOTE | 2017-04-15 09:30 | Discharge Instructions ---
Discharge Instructions Procedure Procedure Date: Apr 15, 2017. Reason for Visit: Chronic Venous Insufficiency. Discharge Discharge Date: Apr 15, 2017. Discharge Diagnosis: Chronic venous insufficiency Last Recorded Wt (Kilograms): 110 Anesthesia Post Anesthesia Instructions: If you have had General Anesthesia or IV Sedation: * Do not drive today. * Resume driving when surgeon permits. * Do not make important decisions or sign legal documents today. * Call surgeon for: 1. Temperature elevations greater than 101 degrees F. 2. Uncontrollable pain. 3. Excessive bleeding. 4. Persistent nausea and vomiting. 5. Medication intolerance (nausea, vomiting or rash). * For nausea and vomiting use only clear liquids such as: tea, soda, bouillon until nausea subsides, then gradually increase diet as tolerated. * If you have any concerns or questions, call your surgeon's office. If physician is unavailable and it is an emergency, call 911 or go to the nearest emergency room. Instructions Activity Recommendations: limitations as noted below, resume regular activity Recommended Home Diet: resume previous diet, low sodium, low cholesterol Allergies: Coded Allergies: Cephalexin (Verified Allergy, Unknown, UNKNOWN, 04/15/17) Follow Up Additional Instructions: Follow instructions as outlined in paperwork from Dr. Carrero' office. Up walking today. Follow up Ultrasound as scheduled. MIKAELA wrap until scheduled ultrasound Post ultrasound wear compression stockings indefinitely. Any severe pain, present to the emergency room for evaluation for DVT. Follow-up with: As scheduled Mireya Huerta Recommendations: Call your doctor if: * Temperature above 101 degrees * Pain not relieved by pain medicine ordered * There is increased drainage or redness from any incision * You have any unanswered questions or concerns. Your Doctors Instructions noted above were prepared by provider Trevon Carrero. Patient Signature Section: Patient Instructions Signature Page Jamee Rosas Patient (or Guardian) Signature/Date: I have read and understand the instructions given to me by my caregivers. Caregiver/RN/Doctor Signature/Date: The above-named patient and/or guardian has received patient instructions on this date. + Original Patient Signature Page (only) stays with chart. Please make copy for patient.
[2017-04-15 09:38] VITALS: BP 140/65; PULSE 69; TEMP 36.5; O2SAT 97
[2017-04-15 10:10] VITALS: BP 147/74; PULSE 74; TEMP 36.5; O2SAT 98
[2017-04-15 10:40] VITALS: BP 143/74; PULSE 73; TEMP 36.5; O2SAT 98
== END 2017-04-15 10:40 | disposition home or self-care (01) ==
LOC: C.ACU 06:45
PROVIDERS: ATTEND Internal Medicine Interventional Cardiology
DX: I87.2 Venous insufficiency (chronic) (peripheral) (principal); R60.0 Localized edema; M79.604 Pain in right leg; M79.605 Pain in left leg; I10 Essential (primary) hypertension; E78.5 Hyperlipidemia, unspecified; Z79.82 Long term (current) use of aspirin; Z79.899 Other long term (current) drug therapy

== ENCOUNTER → 2017-04-26 | Outpatient (CLI) | payer OTHER ==
[~2017-04-26] MED LIST changes: -NRN100 PO; -SODIUM CHLORIDE 0.9% 1000ML 1,000 ML IV SCH
[2017-04-26 13:21] LABS: THYROID STIMULATING HORMONE 16.8 uIu/ml (0.300-4.500)
== END | disposition home or self-care (01) ==
LOC: C.LABPVFM 07:30
PROVIDERS: ATTEND Internal Medicine Endocrinology, Diabetes & Metabolism
DX: E05.90 Thyrotoxicosis, unspecified without thyrotoxic crisis or storm (principal)

== ENCOUNTER → 2017-05-28 | Outpatient (CLI) | payer OTHER | END | disposition home or self-care (01) | LOC: C.LABPVFM 07:38 | PROVIDERS: ATTEND Internal Medicine Endocrinology, Diabetes & Metabolism | DX: E05.90 Thyrotoxicosis, unspecified without thyrotoxic crisis or storm (principal) ==

== ENCOUNTER → 2017-07-06 | Outpatient (CLI) | payer OTHER ==
[2017-07-06 13:22] LABS: HEMOGLOBIN A1C 5.7 % (4.5-5.6)
== END | disposition home or self-care (01) ==
LOC: C.LABPVFM 10:01
PROVIDERS: ATTEND Nurse Practitioner
DX: R73.01 Impaired fasting glucose (principal)

== ENCOUNTER → 2017-07-19 | Outpatient (CLI) | payer OTHER | END | disposition home or self-care (01) | LOC: C.LABPVFM 07:30 | PROVIDERS: ATTEND Internal Medicine Endocrinology, Diabetes & Metabolism | DX: E05.90 Thyrotoxicosis, unspecified without thyrotoxic crisis or storm (principal) ==

== ENCOUNTER → 2017-07-27 | Outpatient (CLI) | payer OTHER | END | disposition home or self-care (01) | LOC: C.PATHSPEC 10:50 | PROVIDERS: ATTEND Obstetrics & Gynecology | DX: R93.8 Abnormal findings on diagnostic imaging of other specified body structures (principal) ==

== ENCOUNTER → 2017-07-27 | Outpatient (CLI) | payer OTHER | END | disposition home or self-care (01) | LOC: C.PAPS 11:38 | PROVIDERS: ATTEND Obstetrics & Gynecology | DX: Z01.419 Encounter for gynecological examination (general) (routine) without abnormal findings (principal) ==

== ENCOUNTER → 2017-08-20 | Outpatient (CLI) | payer OTHER ==
--- NOTE | 2017-08-20 11:10 | DIAGNOSTIC IMAGING REPORT ---
L KNEE 3 VIEWS CLINICAL HISTORY: ACUTE KNEE PAIN, PREPATELLAR BURSITIS COMPARISON: None FINDINGS: Alignment of the left knee is anatomic. No fracture or suspicious lesion is present. There is a small left knee joint effusion. There may be a few small joint bodies within the posterior aspect of the knee joint. Mild patellofemoral compartment joint space narrowing is noted. There is tricompartmental osteophytosis. IMPRESSION: 1. No acute fracture. 2. Small left knee joint effusion. 3. Mild to moderate tricompartmental osteoarthritis of the left knee. 4. A few possible small joint bodies. Electronically signed by: Tung Cleveland M.D. 08/20/2017 11:08 AM Dictated Date/Time: 08/20/2017 11:07 AM
== END | disposition home or self-care (01) ==
LOC: C.RADPV 10:54
PROVIDERS: ATTEND Nurse Practitioner
DX: M25.562 Pain in left knee (principal); M70.42 Prepatellar bursitis, left knee; M25.462 Effusion, left knee

== ENCOUNTER → 2017-11-25 | Outpatient (CLI) | payer OTHER ==
--- NOTE | 2017-11-25 16:06 | MAMMOGRAPHY REPORT ---
BILATERAL DIGITAL SCREENING MAMMOGRAM TOMOSYNTHESIS WITH CAD: 11/25/2017 CLINICAL HISTORY: Routine screening. Patient has no complaints. TECHNIQUE: The study was acquired using full field digital technology and interpreted from soft copy. Breast tomosynthesis in addition to standard 2D mammography was performed. Current study was also ev aluated with a Computer Aided Detection (CAD) system. COMPARISON: Comparison is made to exams dated: 11/24/2016 mammogram, 10/24/2015 mammogram, 10/22/2014 m ammogram, 10/16/2013 mammogram, 10/13/2012 mammogram, and 10/13/2011 mammogram - [facility] er. BREAST COMPOSITION: There are scattered areas of fibroglandular density in both breasts. FINDINGS: No suspicious masses, calcifications, or areas of architectural distortion are noted in either breast . There has been no significant interval change compared to prior exams. Scattered bilateral benign-a ppearing calcifications are not significantly changed. IMPRESSION: There is no mammographic evidence of malignancy. A 1 year screening mammogram is recommended.( [id number]) The patient will receive written notification of the results. Some breast cancers are not detected with mammography. A negative mammographic report should not johnny y biopsy if a clinically suggestive mass is present. Dayanna Suazo M.D. ah/:11/25/2017 08:54:11 Billing Clerk: Gloria Crews, [facility] letter sent: Normal 1/2 BI-RADS Code: ACR BI-RADS Category 2: Benign
== END | disposition home or self-care (01) ==
LOC: C.MAMM 08:30
PROVIDERS: ATTEND Nurse Practitioner
DX: Z12.31 Encounter for screening mammogram for malignant neoplasm of breast (principal)